=== PATIENT | male | born 1965 | race African-American/Black ===

== ENCOUNTER 2018-11-25 08:56 | Emergency (ER) | payer MEDICAID ==
[~2018-11-25] VITALS: Ht 175.3 cm; Wt 87.0 kg
[2018-11-25 09:17] VITALS: BP 146/79
== END 2018-11-25 11:28 | disposition left against medical advice (07) ==
LOC: ER 08:56
DX: R51 Headache (principal); R53.1 Weakness; M79.10 Myalgia, unspecified site; Z53.21 Procedure and treatment not carried out due to patient leaving prior to being seen by health care provider